=== PATIENT | male | born 1955 | race African-American/Black ===

== ENCOUNTER 2018-02-12 10:16 | Observation (INO) | payer OTHER ==
[2018-02-12 11:36] VITALS: BMI 28.4
[2018-02-12] MEDS ORDERED: GLUCAGON 1 MG/VIAL IM PRN (11:36)
[2018-02-12] MEDS ORDERED: D50W 25 GM/50 ML SYRINGE IV PRN (11:36)
[2018-02-12] MEDS: INSULIN -REGULAR HUMAN 50 UNIT/0.5 ML ML SQ SCH ×3 (11:57→20:40)
[2018-02-12 12:15] LABS: Urine Appearance CLEAR; Urine Blood NEGATIVE (NEG); Urine Color DK YELLOW; Urine Glucose 3+ (NEG); Urine Protein 1+ (NEG); Urine Specific Gravity >=1.030 (1.005-1.030)
[2018-02-12 12:23] LABS: Urine Bilirubin 1+ (NEG); Urine Microscopic Reflex ORDER UMIC
[2018-02-12] MEDS: NACHLORIDE 0.45% 1,000 ML IV SCH ×2 (12:23→17:40)
[2018-02-12 12:30] LABS: Urine Bacteria >50 /HPF (NONE SEEN); Urine Culture Reflex Order REFLEXED; Urine RBC NONE SEEN /HPF (NONE SEEN)
[2018-02-12 12:31] LABS: Urine Amorphous Sediment 2+ /HPF (NONE SEEN); Urine Mucus HEAVY /HPF (NONE SEEN)
[2018-02-12 12:45] LABS: Absolute Lymphocytes (CBC) 2.6 K/uL (0.7-4.9); Absolute Monocytes 1.3 K/uL (0.1-1.3); Basophils % 0.3 % (0-1.3); Eosinophils % 0.2 % (0-4.4); Hematocrit 37.7 % (39.6-49.0); Lymphocytes % 21.7 % (15.3-44.8); MCH 25.9 pg (27.0-35.0); MCV 81.7 fL (80-100); Monocytes % 10.6 % (3.3-12.3); RBC Red Blood Cell Count 4.62 M/uL (4.33-5.43)
[2018-02-12 13:00] LABS: Albumin 3.7 g/dL (3.2-5.5); Protein, Total 7.9 g/dL (6.0-8.3)
[2018-02-12] MEDS ORDERED: CEFTRIAXONE/SWI 2gm 2 GM/20 ML SYR IV SCH (18:00)
[2018-02-12] MEDS ORDERED: ONDANSETRON 4 MG/2 ML VIAL IV PRN (20:03)
[2018-02-12] MEDS: ACETAMINOPHEN 500 MG TAB PO PRN (23:58)
[2018-02-13 00:49] VITALS: O2SAT 97
[2018-02-13] MEDS: NACHLORIDE 0.45% 1,000 ML IV SCH ×3 (00:49→13:49)
[2018-02-13 05:24] LABS: Potassium 4.3 mEq/L (3.6-5.0)
[2018-02-13] MEDS: ACETAMINOPHEN 500 MG TAB PO PRN (08:04)
[2018-02-13] MEDS: INSULIN -REGULAR HUMAN 50 UNIT/0.5 ML ML SQ SCH ×3 (08:17→17:17)
[2018-02-13 18:31] VITALS: BP 123/68; TEMP 97.2
--- NOTE | 2018-02-13 19:31 | HP ---
Date of Admission: 02/12/2018 Chief Complaint: Vomiting, diarrhea, dehydration. History Of Present Illness: A 62-year-old male was brought to the office with history of continued d iarrhea, abdominal cramp, nausea, and vomiting. The patient was found to be clinically dehydrated wi th a low blood pressure. The patient is admitted for IV fluid administration. The patient denied any history of vomiting or blood in the stools. Past Medical History: Positive for hypertension, type 2 diabetes, hyperlipidemia, osteoarthritis. Family History: Diabetes and hypertension present. Personal History: Allergic to sulfa. Home Medicines: Please refer to the chart. Review of Systems: No chest pain, shortness of breath. Physical Examination: General: Revealed a 62-year-old obese male. HEENT: Negative. Neck: Supple, JVD negative. Chest: Clear. Heart: Regular. Abdomen: Diffuse mild tenderness. Bowel sounds present. Extremities: No edema. Laboratory Data: White count 67912, creatinine 2.18, BUN 36, GFR 37. Assessment: 1.Probable viral gastroenteritis. 2.Dehydration. 3.Renal dysfunction due to dehydration. 4.Type 2 diabetes. 5.Hypertension. 6.Hyperlipidemia. 7.Osteoarthritis. Plan: IV fluids. Repeat Chem profile. Hold blood pressure medications. Insulin sliding scale. FERMÍN/SEEMA Voice ID: [id number]
== END 2018-02-13 19:00 | disposition home or self-care (01) ==
LOC: 2ND 11:22
PROVIDERS: ADMIT Internal Medicine; ATTEND Internal Medicine
DX: E86.0 Dehydration (principal); N28.9 Disorder of kidney and ureter, unspecified; I10 Essential (primary) hypertension; E11.9 Type 2 diabetes mellitus without complications; E78.5 Hyperlipidemia, unspecified; Z88.2 Allergy status to sulfonamides; E66.9 Obesity, unspecified; Z68.28 Body mass index [BMI] 28.0-28.9, adult; M19.90 Unspecified osteoarthritis, unspecified site
CPT/HCPCS: 36415; 80048; 80053; 81003; 81015; 82962; 85025; 87086; 87088; 87493; G0378; J0696; J2405

== ENCOUNTER 2021-01-30 17:48 | Emergency (ER) | payer BC, OTHER ==
[2021-01-30] MEDS ORDERED: NA CHLORIDE 0.9% 1,000 ML ONE (22:08)
[2021-01-30 22:26] LABS: Absolute Lymphocytes (CBC) 2.6 K/uL (0.7-4.9); Basophils % 0.6 % (0-1.3); Hematocrit 35.4 % (39.6-49.0); Lymphocytes % 24.5 % (15.3-44.8); MPV 8.7 fL (7.6-11.3); RBC Red Blood Cell Count 4.25 M/uL (4.33-5.43)
[2021-01-30 22:27] LABS: Protime INR 1.1
[2021-01-30 22:40] LABS: ALT/SGPT 22 U/L (12-78); AST/SGOT 19 U/L (15-37); Albumin 3.5 g/dL (3.4-5.0); Alkaline Phosphatase 60 U/L (45-117); BUN Blood Urea Nitrogen 28 mg/dL (7-18); Bicarbonate 27 mmol/L (21-32); Bilirubin Direct 0.2 mg/dL (0-0.2); Bilirubin Total 0.5 mg/dL (0.2-1.0); Glucose Level 117 mg/dL (74-106); Lipase 135 U/L (73-393); Magnesium 1.8 mg/dL (1.8-2.4); NT PRO-BNP 333 pg/mL (<125); Potassium 4.2 mmol/L (3.5-5.1); Protein, Total 8.9 g/dL (6.4-8.2); Sodium Level 138 mmol/L (136-145); Troponin (Emerg Dept Use Only) < 0.02 ng/mL (0.0-0.045)
[2021-01-30 23:24] LABS: Urine Blood 3+ (Negative); Urine Glucose Negative (Negative); Urine Protein 3+ (Negative); Urine Specific Gravity >=1.030 (1.005-1.030)
--- NOTE | 2021-01-30 23:47 | EDPHYS ---
Physician Documentation [facility] Name: Mike Ray Age: 65 yrs Sex: Male : 1955 Arrival Date: 01/30/2021 Time: 17:48 Bed 24 Private MD: Sergio Rasmussen ED Physician Arnaldo Vail HPI: 01/30 21:44 This 65 yrs old Black Male presents to ER via Ambulatory with complaints of Blood chuy Pressure Problem, elevated heart rate. 21:44 The patient presents to the emergency department with nausea, vomiting, 1 times since chuy the onset of symptoms. Onset: The symptoms/episode began/occurred today. Possible causes: unknown. The symptoms are aggravated by nothing. The symptoms are alleviated by nothing. nausea, no pain, bp 94/64, bp normally 105. Associated signs and symptoms: Pertinent positives: nausea. Onset: The symptoms/episode began/occurred today. Severity of symptoms: At their worst the symptoms were mild in the emergency department the symptoms are unchanged. The patient has experienced similar episodes in the past, a few times. Historical: - Allergies: 18:10 Sulfa (Sulfonamide Antibiotics); ss - PMHx: 18:10 Diabetes - IDDM; Hypertension; ss 18:11 GERD; Enlarged prostate; ss - Immunization history:: Adult Immunizations up to date. - Social history:: Smoking status: Patient denies any tobacco usage or history of. - Family history:: not pertinent. ROS: 21:44 Constitutional: Negative for fever, chills, and weight loss, Eyes: Negative for injury, chuy pain, redness, and discharge, ENT: Negative for injury, pain, and discharge, Neck: Negative for injury, pain, and swelling, Cardiovascular: Negative for chest pain, palpitations, and edema, Respiratory: Negative for shortness of breath, cough, wheezing, and pleuritic chest pain, Abdomen/GI: Negative for abdominal pain, nausea, vomiting, diarrhea, and constipation, Back: Negative for injury and pain, : Negative for injury, bleeding, discharge, and swelling, Skin: Negative for injury, rash, and discoloration, Neuro: Negative for headache, weakness, numbness, tingling, and seizure, Psych: Negative for depression, anxiety, suicide ideation, homicidal ideation, and hallucinations, Allergy/Immunology: Negative for hives, rash, and allergies, Endocrine: Negative for neck swelling, polydipsia, polyuria, polyphagia, and marked weight changes, Hematologic/Lymphatic: Negative for swollen nodes, abnormal bleeding, and unusual bruising. 21:44 MS/extremity: Positive for swelling, of the right leg. Exam: 21:44 Constitutional: This is a well developed, well nourished patient who is awake, alert, chuy and in no acute distress. Head/Face: Normocephalic, atraumatic. Eyes: Pupils equal round and reactive to light, extra-ocular motions intact. Lids and lashes normal. Conjunctiva and sclera are non-icteric and not injected. Cornea within normal limits. Periorbital areas with no swelling, redness, or edema. ENT: Nares patent. No nasal discharge, no septal abnormalities noted. Tympanic membranes are normal and external auditory canals are clear. Oropharynx with no redness, swelling, or masses, exudates, or evidence of obstruction, uvula midline. Mucous membranes moist. Neck: Trachea midline, no thyromegaly or masses palpated, and no cervical lymphadenopathy. Supple, full range of motion without nuchal rigidity, or vertebral point tenderness. No Meningismus. Chest/axilla: Normal chest wall appearance and motion. Nontender with no deformity. No lesions are appreciated. Respiratory: Lungs have equal breath sounds bilaterally, clear to auscultation and percussion. No rales, rhonchi or wheezes noted. No increased work of breathing, no retractions or nasal flaring. Abdomen/GI: Soft, non-tender, with normal bowel sounds. No distension or tympany. No guarding or rebound. No evidence of tenderness throughout. Back: No spinal tenderness. No costovertebral tenderness. Full range of motion. Male : Normal genitalia with no discharge or lesions. Skin: Warm, dry with normal turgor. Normal color with no rashes, no lesions, and no evidence of cellulitis. Neuro: Awake and alert, GCS 15, oriented to person, place, time, and situation. Cranial nerves II-XII grossly intact. Motor strength 5/5 in all extremities. Sensory grossly intact. Cerebellar exam normal. Normal gait. Psych: Awake, alert, with orientation to person, place and time. Behavior, mood, and affect are within normal limits. 21:44 Cardiovascular: Rate: tachycardic, actual rate is 105 bpm, Rhythm: regular, Pulses: Pulses are 4+ in bilateral radial, brachial, femoral, popliteal, posterior tibial and and dorsalis pedis arteries.. Heart sounds: normal, Edema: is not appreciated, JVD: is not appreciated. 21:59 ECG was reviewed by the Attending Physician. [facility] Vital Signs: 18:07 BP 94 / 67; Pulse 105; Resp 16; Temp 97.0(TE); Pulse Ox 98% on R/A; Weight 163.29 kg; ss Height 6 ft. 5 in. (195.58 cm); Pain 0/10; 21:30 BP 115 / 62; Pulse 90; Resp 16; Pulse Ox 98% ; rr5 22:30 BP 114 / 70; Pulse 85; Resp 17; Pulse Ox 100% ; rr5 23:25 BP 112 / 77 Supine; Pulse 92; Resp 16; Pulse Ox 100% ; rr5 23:27 BP 106 / 81 Sitting; Pulse 93; Resp 18; Pulse Ox 99% ; rr5 23:29 BP 109 / 77 Standing; Pulse 95; Resp 16; Pulse Ox 99% ; rr5 01/31 00:22 BP 127 / 85; Pulse 90; Resp 17; Pulse Ox 98% ; rr5 01/30 18:07 Body Mass Index 42.69 (163.29 kg, 195.58 cm) ss MDM: 01/30 21:13 Patient medically screened. chuy 21:47 Differential diagnosis: Nonspecific abd pain, viral gastroenteritis, gastroenteritis. [facility] Data reviewed: vital signs, nurses notes, lab test result(s), EKG, radiologic studies, doppler, plain films. Data interpreted: monitoring analyst: rate is 105 beats/min, rhythm is regular, Pulse oximetry: on room air is 98 %. Test interpretation: by ED physician or midlevel provider: ECG, plain radiologic studies. Counseling: I had a detailed discussion with the patient and/or guardian regarding: the historical points, exam findings, and any diagnostic results supporting the discharge/admit diagnosis, lab results, radiology results, the need for outpatient follow up. 01/30 21:43 Order name: Basic Metabolic Panel [facility] 01/30 21:43 Order name: CBC with Diff [facility] 01/30 21:43 Order name: LFT's [facility] 01/30 21:43 Order name: Magnesium [facility] 01/30 21:43 Order name: NT PRO-BNP; Complete Time: :43 [facility] 01/30 21:43 Order name: PT-INR; Complete Time: 22:43 [facility] 01/30 21:43 Order name: Troponin (emerg Dept Use Only); Complete Time: 22:43 [facility] 01/30 21:43 Order name: Lipase; Complete Time: 22:43 [facility] 01/30 21:44 Order name: Basic Metabolic Panel; Complete Time: 22:43 EDMS 01/30 21:44 Order name: CBC with Automated Diff; Complete Time: 22:43 EDAK 01/30 21:44 Order name: Liver (Hepatic) Function; Complete Time: 22:43 EDAK 01/30 21:44 Order name: Magnesium; Complete Time: 22:43 EDAK 01/30 23:24 Order name: Urine Dipstick-Ancillary; Complete Time: 23:27 EDAK 01/30 23:24 Order name: Urine Microscopic Only rr5 01/30 21:43 Order name: XRAY Chest (1 view) [facility] 01/30 21:43 Order name: EKG; Complete Time: 21:44 [facility] 01/30 21:43 Order name: Cardiac monitoring; Complete Time: 22:00 [facility] 01/30 21:43 Order name: EKG - Nurse/Tech; Complete Time: 21:57 [facility] 01/30 21:43 Order name: IV Saline Lock; Complete Time: 23:28 [facility] 01/30 21:43 Order name: Labs collected and sent; Complete Time: 23:28 [facility] 01/30 21:43 Order name: O2 Per Protocol; Complete Time: 22:00 [facility] 01/30 21:43 Order name: O2 Sat Monitoring; Complete Time: 22:00 [facility] 01/30 21:43 Order name: US Extremity Venous W Compression Filippo [facility] 01/30 21:43 Order name: Urine Dipstick-Ancillary (obtain specimen); Complete Time: 23:24 [facility] 01/30 22:49 Order name: Orthostatic Blood Pressure; Complete Time: 23:24 [facility] 01/30 23:26 Order name: Urine Culture [facility] EC:59 Rate is 94 beats/min. Rhythm is regular. QRS Williams is Normal. NH interval is normal. QRS chuy interval is normal. QT interval is normal. No Q waves. T waves are Normal. No ST changes noted. Clinical impression: NSR w/ Non-specific ST/T Changes and No evidence of ischemia. Interpreted by me. Reviewed by me. Administered Medications: 22:00 Drug: NS 0.9% 1000 ml Route: IV; Rate: 1 bolus; Site: left antecubital; jb4 23:30 Follow up: Response: No adverse reaction; IV Status: Completed infusion; IV Intake: rr5 1000ml 23:39 Drug: Rocephin 1 grams - ((cefTRIAXone) 1 grams, NS 0.9% 50 ml) Route: IVPB; Infused rr5 Over: 30 mins; Site: left antecubital; 01/31 00:28 Follow up: Response: No adverse reaction; IV Status: Completed infusion; IV Intake: [id number] 01/30 23:39 Drug: LevOfloxacin 500 mg Route: PO; rr5 01/31 00:28 Follow up: Response: No adverse reaction rr5 Disposition: 01/30/21 23:45 Discharged to Home. Impression: Type 1 diabetes mellitus, Obesity, unspecified, Chronic kidney disease (CKD), Urinary tract infection, site not specified, Nausea and vomiting. - Condition is Stable. - Discharge Instructions: Type 1 Diabetes Mellitus, Diagnosis, Adult, Nausea and Vomiting, Adult, Obesity, Adult, Urinary Tract Infection, Adult, Nausea and Vomiting, Adult, Ognf-jb-Zygs, Urinary Tract Infection, Adult, Ecrl-qd-Rjli, Chronic Kidney Disease, Adult, Krhg-ec-Djji, Chronic Kidney Disease, Adult, Obesity, Adult, Xjnh-rw-Ekeq, Type 1 Diabetes Mellitus, Self Care, Adult, Ypoq-hy-Bift. - Prescriptions for Zofran 4 mg Oral Tablet - take 1 tablet by ORAL route every 12 hours As needed; 20 tablet. Levaquin 250 mg Oral Tablet - take 1 tablet by ORAL route once daily for 8 days; 4 tablet. - Medication Reconciliation Form, Thank You Letter, Antibiotic Education, Prescription Opioid Use, Work release form form. - Follow up: Sergio Rasmussen; When: 1 - 2 days; Reason: Recheck today's complaints, Re-evaluation by your physician. Follow up: Rosanna Preston MD; When: 2 - 3 days; Reason: Recheck today's complaints, Re-evaluation by your physician. - Problem is new. - Symptoms have improved. Signatures: Dispatcher [employer] EDAK Arnaldo Vail MD MD cha Smirch, Shelby, RN RN ss Patel Guerra RN RN jb4 Arvin Abreu RN RN rr5 Corrections: (The following items were deleted from the chart) 01/30 23:50 23:45 01/30/2021 23:45 Discharged to Home. Impression: Type 1 diabetes mellitus; chuy Obesity, unspecified; Chronic kidney disease (CKD); Urinary tract infection, site not specified. Condition is Stable. Discharge Instructions: Type 1 Diabetes Mellitus, Diagnosis, Adult, Obesity, Adult, Chronic Kidney Disease, Adult, Xmld-ae-Qqar, Chronic Kidney Disease, Adult, Obesity, Adult, Mugf-sq-Hhwg, Type 1 Diabetes Mellitus, Self Care, Adult, Egvd-bk-Rucs. Prescriptions for Zofran 4 mg Oral Tablet - take 1 tablet by ORAL route every 12 hours As needed; 20 tablet. and Forms are Medication Reconciliation Form, Thank You Letter, Antibiotic Education, Prescription Opioid Use. Follow up: Sergio Rasmussen; When: 1 - 2 days; Reason: Recheck today's complaints, Re-evaluation by your physician. Follow up: Rosanna Preston; When: 2 - 3 days; Reason: Recheck today's complaints, Re-evaluation by your physician. Problem is new. Symptoms have improved. chuy 01/31 00:29 01/30 23:50 01/30/2021 23:45 Discharged to Home. Impression: Type 1 diabetes mellitus; rr5 Obesity, unspecified; Chronic kidney disease (CKD); Urinary tract infection, site not specified; Nausea and vomiting. Condition is Stable. Discharge Instructions: Type 1 Diabetes Mellitus, Diagnosis, Adult, Obesity, Adult, Chronic Kidney Disease, Adult, Tlqj-sc-Pzft, Chronic Kidney Disease, Adult, Obesity, Adult, Drlu-zn-Aaxd, Type 1 Diabetes Mellitus, Self Care, Adult, Msaw-jx-Wsgf, Urinary Tract Infection, Adult, Urinary Tract Infection, Adult, Okpf-iy-Saal. Prescriptions for Zofran 4 mg Oral Tablet - take 1 tablet by ORAL route every 12 hours As needed; 20 tablet, Levaquin 250 mg Oral Tablet - take 1 tablet by ORAL route once daily for 8 days; 4 tablet. and Forms are Medication Reconciliation Form, Thank You Letter, Antibiotic Education, Prescription Opioid Use. Follow up: Sergio Rasmussen; When: 1 - 2 days; Reason: Recheck today's complaints, Re-evaluation by your physician. Follow up: Rosanna Preston; When: 2 - 3 days; Reason: Recheck today's complaints, Re-evaluation by your physician. Problem is new. Symptoms have improved. chuy
--- NOTE | 2021-01-30 23:47 | ER ---
Nurse's Notes [facility] Name: Mike Ray Age: 65 yrs Sex: Male : 1955 Arrival Date: 01/30/2021 Time: 17:48 Bed 24 Private MD: Sergio Rasmussen Diagnosis: Type 1 diabetes mellitus;Obesity, unspecified;Chronic kidney disease (CKD);Urinary tract infection, site not specified;Nausea and vomiting Presentation: 01/30 18:07 Chief complaint: Patient states: Diarrhea that began yesterday. nausea with one episode ss of vomiting today. Pt reports he was at work and was feeling nauseous so he called the nurse and his blood pressure was 98/64. Called Dr. Rasmussen who told him to come to ED for further evaluation. Coronavirus screen: Client denies travel out of the [place] in the last 14 days. Ebola Screen: Patient denies exposure to infectious person. Patient denies travel to an Ebola-affected area in the 21 days before illness onset. Initial Sepsis Screen: Does the patient meet any 2 criteria? No. Patient's initial sepsis screen is negative. Does the patient have a suspected source of infection? No. Patient's initial sepsis screen is negative. Risk Assessment: Do you want to hurt yourself or someone else? Patient reports no desire to harm self or others. Onset of symptoms was January 29, 2021. 18:07 Method Of Arrival: Ambulatory ss 18:07 Acuity: MOOSE 3 ss Historical: - Allergies: 18:10 Sulfa (Sulfonamide Antibiotics); ss - PMHx: 18:10 Diabetes - IDDM; Hypertension; ss 18:11 GERD; Enlarged prostate; ss - Immunization history:: Adult Immunizations up to date. - Social history:: Smoking status: Patient denies any tobacco usage or history of. - Family history:: not pertinent. Screenin:35 Abuse screen: Denies threats or abuse. Denies injuries from another. Nutritional rr5 screening: No deficits noted. Tuberculosis screening: No symptoms or risk factors identified. Fall Risk IV access (20 points). Total Torres Fall Scale indicates No Risk (0-24 pts). Assessment: 21:35 General: Appears in no apparent distress. comfortable, Behavior is calm, cooperative, rr5 appropriate for age. 21:35 Pain: Denies pain. Neuro: Level of Consciousness is awake, alert, obeys commands, rr5 Oriented to person, place, time, situation. Cardiovascular: Reports BP problem, elevated heart rate Capillary refill < 3 seconds Patient's skin is warm and dry. Respiratory: Airway is patent Respiratory effort is even, unlabored, Respiratory pattern is regular, symmetrical. GI: Reports diarrhea. : No signs and/or symptoms were reported regarding the genitourinary system. EENT: No signs and/or symptoms were reported regarding the EENT system. Derm: Skin is intact, is healthy with good turgor, Skin temperature is warm. Musculoskeletal: Circulation, motion, and sensation intact. Capillary refill < 3 seconds. 22:30 Reassessment: Patient appears in no apparent distress at this time. Patient is alert, rr5 oriented x 3, equal unlabored respirations, skin warm/dry/pink. awaiting for results. 23:30 Reassessment: Patient appears in no apparent distress at this time. Patient is alert, rr5 oriented x 3, equal unlabored respirations, skin warm/dry/pink. no complaints made. 01/31 00:22 Reassessment: Patient appears in no apparent distress at this time. Patient is alert, rr5 oriented x 3, equal unlabored respirations, skin warm/dry/pink. discharge instruction given and explained without complaints made. Vital Signs: 01/30 18:07 BP 94 / 67; Pulse 105; Resp 16; Temp 97.0(TE); Pulse Ox 98% on R/A; Weight 163.29 kg; Height 6 ft. 5 in. (195.58 cm); Pain 0/10; 21:30 BP 115 / 62; Pulse 90; Resp 16; Pulse Ox 98% ; rr5 22:30 BP 114 / 70; Pulse 85; Resp 17; Pulse Ox 100% ; rr5 23:25 BP 112 / 77 Supine; Pulse 92; Resp 16; Pulse Ox 100% ; rr5 23:27 BP 106 / 81 Sitting; Pulse 93; Resp 18; Pulse Ox 99% ; rr5 23:29 BP 109 / 77 Standing; Pulse 95; Resp 16; Pulse Ox 99% ; rr5 01/31 00:22 BP 127 / 85; Pulse 90; Resp 17; Pulse Ox 98% ; rr5 01/30 18:07 Body Mass Index 42.69 (163.29 kg, 195.58 cm) ED Course: 01/30 17:48 Patient arrived in ED. as 17:49 Sergio Rasmussen MD is Private Physician. as 18:09 Triage completed. ss 18:10 Arm band placed on right wrist. ss 21:13 Arnaldo Vail MD is Attending Physician. chuy 21:35 Patient has correct armband on for positive identification. Bed in low position. Call rr5 light in reach. Side rails up X2. fabricating machine operator on. Pulse ox on. NIBP on. 21:46 Arvin Abreu, RN is Primary Nurse. rr5 21:55 Initial lab(s) drawn, by ia, sent to lab. Inserted saline lock: 18 gauge in left jb4 antecubital area, using aseptic technique. Blood collected. 22:02 XRAY Chest (1 view) In Process Unspecified. EDMS 22:22 US Extremity Venous W Compression Filippo In Process Unspecified. EDMS 23:45 Sergio Rasmussen MD is Referral Physician. [facility] 23:45 Rosanna Preston MD is Referral Physician. [facility] 01/31 00:27 No provider procedures requiring assistance completed. IV discontinued, intact, rr5 bleeding controlled, No redness/swelling at site. Pressure dressing applied. Administered Medications: 01/30 22:00 Drug: NS 0.9% 1000 ml Route: IV; Rate: 1 bolus; Site: left antecubital; jb4 23:30 Follow up: Response: No adverse reaction; IV Status: Completed infusion; IV Intake: rr5 1000ml 23:39 Drug: Rocephin 1 grams - ((cefTRIAXone) 1 grams, NS 0.9% 50 ml) Route: IVPB; Infused rr5 Over: 30 mins; Site: left antecubital; 01/31 00:28 Follow up: Response: No adverse reaction; IV Status: Completed infusion; IV Intake: [id number] 01/30 23:39 Drug: LevOfloxacin 500 mg Route: PO; rr5 01/31 00:28 Follow up: Response: No adverse reaction rr5 Intake: 01/30 23:30 IV: 1000ml; Total: 1000ml. rr5 01/31 00:28 IV: 10ml; Total: 1010ml. rr5 Outcome: 01/30 23:45 Discharge ordered by . [facility] 01/31 00:27 Discharged to home ambulatory. rr5 Condition: stable Discharge instructions given to patient, Instructed on discharge instructions, follow up and referral plans. medication usage, Demonstrated understanding of instructions, follow-up care, medications, Prescriptions given X 1. 00:29 Patient left the ED. rr5 Addendum: 02/03/2021 07:19 Addendum: Culture Results: Positive urine culture. No further action required. Bacteria e b sensitive to prescribed antibiotic. Signatures: Dispatcher [employer] EDWY Arnaldo Vail MD MD cha Martinez, Amelia as Smirch, Shelby, RN RN Patel Guerra RN RN jb4 Ila Pandya Raymond, RN RN rr5
[2021-01-30] MEDS ORDERED: NA CHLORIDE 0.9% 50 ML ONE (23:51)
[2021-01-30] MEDS ORDERED: levoFLOXacin 500 MG TAB ONE (23:51)
[2021-01-30] MEDS ORDERED: CEFTRIAXONE/SWI 1gm 1 GM/10 ML SYR ONE (23:51)
[2021-01-31 00:27] LABS: Urine Bacteria LOADED /HPF (NONE SEEN)
[2021-01-31 00:28] LABS: Urine RBC >50 /HPF (NONE SEEN); Urine Urothelial Cells <5 /HPF (NONE SEEN)
[2021-01-31 00:52] VITALS: TEMP 97
[2021-01-31 01:01] VITALS: BP 127/85; O2SAT 98
--- NOTE | 2021-01-31 08:18 | RAD REPORT ---
EXAM DESCRIPTION: US - Extrem Venous W Compress Filippo - 01/30/2021 10:22 pm CLINICAL HISTORY: SWELLING Bilateral leg edema and swelling. COMPARISON: No comparisons TECHNIQUE: Real-time sonographic interrogation of the left and right lower extremity deep venous sys tems was performed. FINDINGS: Normal compressibility, flow augmentation, phasic flow and spontaneous flow is identified in both the left and right lower extremity deep venous systems. IMPRESSION: No sonographic evidence of left or right lower extremity deep venous thrombosis.
--- NOTE | 2021-01-31 08:34 | RAD REPORT ---
EXAM DESCRIPTION: RAD - Chest Single View - 01/30/2021 10:02 pm CLINICAL HISTORY: COUGH Chest pain. COMPARISON: CHEST PA AND LAT 2 VIEW dated 01/06/2012 FINDINGS: Portable technique limits examination quality. The lungs are grossly clear. The heart is upper limit of normal in size. No displaced fractures. IMPRESSION: No acute intrathoracic process suspected.
--- NOTE | 2021-01-31 16:10 | EKG ---
Test Date: 2021-01-30 Test Time: 21:54:04 Dairy Nutritionist: RR MEASUREMENT RESULTS: Intervals: Rate: 94 MI: 144 QRSD: 76 QT: 348 QTc: 435 Piffard: P: 55 MI: 144 QRS: -2 T: 44 INTERPRETIVE STATEMENTS: Normal sinus rhythm Low voltage QRS Borderline ECG Compared to ECG 01/06/2012 11:08:02 Low QRS voltage now present Electronically Signed On 01-31-21 16:07:01 CDT by Mann Cardoso
== END 2021-01-31 00:29 | disposition home or self-care (01) ==
LOC: ER 17:48
DX: N39.0 Urinary tract infection, site not specified (principal); E11.22 Type 2 diabetes mellitus with diabetic chronic kidney disease; I12.9 Hypertensive chronic kidney disease with stage 1 through stage 4 chronic kidney disease, or unspecified chronic kidney disease; N18.9 Chronic kidney disease, unspecified; E66.9 Obesity, unspecified
CPT/HCPCS: 93005; 87088; 85025; 87086; 80048; 36415; 83735; 85610; 80076; 84484; 83690; 83880; 71045; 93970; J0696; J7030; 81003; 81015; 87077; 87186; 96361; 96365; 99284

== ENCOUNTER 2021-02-13 12:01 | Observation (INO) | payer BC ==
[2021-02-13] MEDS ORDERED: ONDANSETRON 4 MG/2 ML VIAL ONE (13:15)
[2021-02-13] MEDS ORDERED: NA CHLORIDE 0.9% 1,000 ML ONE (13:16)
[2021-02-13] MEDS ORDERED: MECLIZINE HCL 12.5 MG TAB ONE (13:22)
[2021-02-13 13:25] LABS: Absolute Lymphocytes (CBC) 2.4 K/uL (0.7-4.9); Basophils % 0.5 % (0-1.3); Hematocrit 37.3 % (39.6-49.0); Lymphocytes % 25.1 % (15.3-44.8); MPV 8.8 fL (7.6-11.3); RBC Red Blood Cell Count 4.49 M/uL (4.33-5.43)
--- NOTE | 2021-02-13 13:27 | RAD REPORT ---
EXAM DESCRIPTION: CT - Head Brain Wo Cont - 02/13/2021 1:15 pm CLINICAL HISTORY: Dizziness COMPARISON: 2011 TECHNIQUE: Computed axial tomography of the head was obtained. IV contrast was not requested. All CT scans are performed using dose optimization technique as appropriate and may include automated exposure control or mA/KV adjustment according to patient size. FINDINGS: An intracranial bleed is not seen . The ventricles are normal in caliber. No extra-axial fluid collection is noted. Gliosis right frontal lobe unchanged. Left parietal scalp lesion unchanged. 6 millimeter low-density area adjacent to the right lateral ventricle may be an old small infarction Fluid within the sinuses/ mastoids is not seen. IMPRESSION: No acute intracranial abnormality is seen. If patient's symptoms persist MRI of the bra in would be recommended.
[2021-02-13 13:31] LABS: Protime INR 1.06
[2021-02-13 13:44] LABS: ALT/SGPT 21 U/L (12-78); AST/SGOT 17 U/L (15-37); Alkaline Phosphatase 53 U/L (45-117); BUN Blood Urea Nitrogen 35 mg/dL (7-18); Bicarbonate 27 mmol/L (21-32); Bilirubin Direct 0.2 mg/dL (0-0.2); Bilirubin Total 0.5 mg/dL (0.2-1.0); Glucose Level 147 mg/dL (74-106); Magnesium 1.5 mg/dL (1.8-2.4); NT PRO-BNP 305 pg/mL (<125); Potassium 4.5 mmol/L (3.5-5.1); Sodium Level 140 mmol/L (136-145); Troponin (Emerg Dept Use Only) < 0.02 ng/mL (0.0-0.045)
--- NOTE | 2021-02-13 14:53 | RAD REPORT ---
EXAM DESCRIPTION: MRI - Brain Wo Cont - 02/13/2021 2:41 pm CLINICAL HISTORY: Dizziness COMPARISON: Head CT February 13, 2021 TECHNIQUE: Axial, sagittal, and coronal magnetic images of the brain were obtained. Contrast was not requested FINDINGS: Abnormal signal right frontal lobe probably gliosis secondary to old infarct. Small area o f abnormal signal left cerebellum also probably secondary to an infarct. Diffusion-weighted/ADC mapping does not reveal evidence of acute infarction. The ventricles are normal caliber. An extra-axial fluid collection is not present Fluid within the sinuses/mastoids is not noted IMPRESSION: No acute abnormality is displayed
--- NOTE | 2021-02-13 15:07 | RAD REPORT ---
EXAM DESCRIPTION: Shameka Single View02/13/2021 2:17 pm CLINICAL HISTORY: Shortness of breath COMPARISON: January 2021 FINDINGS: The lungs appear clear of acute infiltrate. The heart is normal size IMPRESSION: No acute abnormalities displayed
[2021-02-13] MEDS ORDERED: ACETAMINOPHEN 500 MG TAB PO PRN (17:06)
[2021-02-13] MEDS ORDERED: ONDANSETRON 4 MG/2 ML VIAL IV PRN (17:06)
[2021-02-13] MEDS ORDERED: HYDROCODONE/APAP 5/325 MG TAB PO PRN (17:11)
--- NOTE | 2021-02-13 17:16 | P.HP ---
Certification for Inpatient Patient admitted to: Inpatient With expected LOS: >2 Midnights Patient will require the following post-hospital care: None Practitioner: I am a practitioner with admitting privileges, knowledge of patient current condition, hospital course, and medical plan of care. Services: Services provided to patient in accordance with Admission requirements found in Title 42 Section 412.3 of the Code of Federal Regulations Patient History Date of Service: 02/13/21 Reason for admission: Near Syncope History of Present Illness: Patient is 65-year-old male with a past medical history significant for hypertension, GERD, DM 2, BPH, HLD who presents with complaint of dizziness. Patient reported that he was at work when he started feeling dizzy and lightheadedness. He also had a near syncopal episode and decided to go see the facility nurse. Patient reported associated signs and symptoms of nausea, vomiting and weakness. Patient denies any other signs or symptoms. Symptoms are aggravated or relieved by nothing. Patient decided to present to the hospital for medical evaluation. Of note, patient reported that his blood pressure was low at work when assessed by the facility nurse. Patient cannot remember the exact figures Allergies Sulfa (Sulfonamide Antibiotics) [Sulfa(Sulfonamide Antibiotics)] Allergy (Verified 01/06/12 10:29) Hives/Rash Home medications list reviewed: Yes Home Medications: Insulin Glargine,Hum.rec.anlog [Basaglar Kwikpen U-100] 40 unit SQ BID 02/12/18 Omeprazole 20 mg PO DAILY 02/12/18 - Past Medical/Surgical History Diabetic: Yes -: iddm -: bilateral cateract surgery -: appendectomy - Social History Smoking Status: Unknown if ever smoked Alcohol use: No CD- Drugs: No Caffeine use: Yes Review of Systems General: Weakness Eyes: Unremarkable ENT: Unremarkable Respiratory: Unremarkable Cardiovascular: Unremarkable Gastrointestinal: Nausea, Vomiting, Unremarkable Genitourinary: Unremarkable Musculoskeletal: Unremarkable Integumentary: Unremarkable Neurological: Weakness, Other (Dizziness ) Lymphatics: Unremarkable Physical Examination - Physical Exam General: Alert, In no apparent distress, Oriented x3 HEENT: Atraumatic, PERRLA, Mucous membr. moist/pink, EOMI, Sclerae nonicteric Neck: Supple, 2+ carotid pulse no bruit, No LAD, Without JVD or thyroid abnormality Respiratory: Clear to auscultation bilaterally, Normal air movement Cardiovascular: No edema, Regular rate/rhythm, Normal S1 S2 Capillary refill: <2 Seconds Gastrointestinal: Normal bowel sounds, No tenderness Musculoskeletal: No clubbing, No tenderness Integumentary: No rashes, No breakdown Neurological: Normal gait, Normal speech, Normal strength at 5/5 x4 extr, Normal tone, Normal affect Lymphatics: No axilla or inguinal lymphadenopathy External genitalia: No edema, Deferred Rectal: Deferred - Studies Laboratory Data (last 24 hrs) 02/13/21 13:12: PT 12.2, INR 1.06 02/13/21 13:12: WBC 9.40, Hgb 11.8 L, Hct 37.3 L, Plt Count 404 02/13/21 13:12: Sodium 140, Potassium 4.5, BUN 35 H, Creatinine 3.48 H, Glucose 147 H, Magnesium 1.5 L, Total Bilirubin 0.5, AST 17, ALT 21, Alkaline Phosphatase 53 Assessment and Plan - Plan --Near syncope. MRI brain unremarkable for any intracranial abnormality. Echocardiogram to assess LV\valvular functions and wall motion. Carotid Doppler to assess for any carotid artery stenosis. Telemetry to monitor for any significant arrhythmia. We will get some orthostatic vital signs. Four Slide Operator consulted. Will await further recommendations. --DM2. BS monitoring with sliding scale insulin. --Nausea and vomiting. Antiemetics on board. --HLD. Continue statin. --BPH. Continue Flomax. --GERD. Continue home medications. -Hypertension. Pts BP initially hypotensive but now Stable. Continue home medications. --Morbid obesity. Likely secondary to excess calories intake. Patient counseled on diet and exercise therapy. --LESLEY. Baseline functions unknown. Continue IV hydration. Will reassess renal functions in am. --Mild Rhabdomyolysis . Continue IV hydration. Will re-assess cpk in am --DVT prophylaxis with Lovenox subQ. Discharge Plan: Home Plan to discharge in: 48 Hours - Advance Directives Does patient have a Living Will: No Does patient have a Durable POA for Healthcare: No - Code Status/Comfort Care Code Status Assessed: Yes Code Status: Full Code Critical Care: No
[2021-02-13 19:50] LABS: Thyroid Stimulating Hormone 0.734 uIU/mL (0.360-3.740)
--- NOTE | 2021-02-13 20:27 | EDPHYS ---
Physician Documentation [facility] Name: Mike Ray Age: 65 yrs Sex: Male : 1955 Arrival Date: 02/13/2021 Time: 12:04 Bed 14 Private MD: Segrio Rasmussen ED Physician Arnaldo Vail HPI: 02/13 12:56 This 65 yrs old Black Male presents to ER via Ambulatory with complaints of Dizziness, jmm Nausea/Vomiting. 12:56 The patient presents with dizziness, feeling faint. Onset: The symptoms/episode jmm began/occurred acutely, just prior to arrival, today. Modifying factors: The symptoms are alleviated by nothing, the symptoms are aggravated by changing position. Associated signs and symptoms: Pertinent positives: vomiting, Pertinent negatives: abdominal pain, chest pain. This is a 65 year old male with a history of htn, GERD, DM that presents to the ED with complaints of vomiting, weakness beginning acutely. BP was low at work. . Historical: - Allergies: 12:36 Sulfa (Sulfonamide Antibiotics); tw2 12:37 Flagyl; tw2 12:37 Neosporin (uuv-auu-mlmtb); tw2 12:37 Amaryl; tw2 - Home Meds: 12:36 metformin 1,000 mg Oral tr24 2 tabs once daily [Active]; ozempic once a week 0.5 mg INJ tw2 [Active]; tamsulosin 0.4 mg oral cp24 1 cap once daily [Active]; basaglar 100 units/ML KWIKPEN once a day [Active]; pravastatin 40 mg oral tab 1 tab once daily [Active]; omeprazole 20 mg Oral cpDR 1 cap once daily [Active]; olmesartan-hydrochlorothiazide oral 40 mg/ 12.5 mg oral [Active]; - PMHx: 12:36 Hypertension; enlarged prostate; GERD; Diabetes - IDDM; tw2 - PSHx: 12:36 boil (staph infection); tw2 12:37 Appendectomy; tw2 - Immunization history:: Adult Immunizations. - Social history:: Smoking status: . ROS: 12:56 Constitutional: Negative for fever, chills, and weight loss, Cardiovascular: Negative jmm for chest pain, palpitations, and edema, Respiratory: Negative for shortness of breath, cough, wheezing, and pleuritic chest pain. 12:56 Abdomen/GI: Positive for vomiting. 12:56 Neuro: Positive for dizziness. 12:56 All other systems are negative. Exam: 12:56 Constitutional: This is a well developed, well nourished patient who is awake, alert, jmm and in no acute distress. Head/Face: atraumatic. Eyes: EOMI, no conjunctival erythema appreciated ENT: Moist Mucus Membranes Neck: Trachea midline, Supple Chest/axilla: Normal chest wall appearance and motion. Cardiovascular: Regular rate and rhythm. No edema appreciated Respiratory: Normal respirations, no respiratory distress appreciated Abdomen/GI: Non distended, soft Back: Normal ROM Skin: General appearance color normal MS/ Extremity: Moves all extremities, no obvious deformities appreciated, no edema noted to the lower extremities Neuro: Awake and alert, normal gait Psych: Behavior is normal, Mood is normal, Patient is cooperative and pleasant Vital Signs: 12:28 BP 73 / 60; Pulse 118; Resp 17; Temp 98.6(O); Pulse Ox 100% on R/A; Weight 161.03 kg tw2 (R); Height 6 ft. 5 in. (195.58 cm) (R); Pain 0/10; 13:26 BP 92 / 69; Pulse 112; Resp 20; Temp 98.5(TE); Pulse Ox 100% on R/A; Weight 161.03 kg; ld1 Height 6 ft. 5 in. (195.58 cm); Pain 0/10; 15:45 BP 123 / 72; Pulse 94; Resp 18; Pulse Ox 100% on R/A; Pain 0/10; jl7 17:02 BP 121 / 78; Pulse 82; Resp 18; Pulse Ox 97% on R/A; Pain 0/10; ld1 20:30 BP 128 / 81; Pulse 79; Resp 16 S; Pulse Ox 100% on R/A; ca1 13:26 Body Mass Index 42.10 (161.03 kg, 195.58 cm) ld1 MDM: 13:03 Patient medically screened. [facility] 16:22 Data reviewed: vital signs, nurses notes. Counseling: I had a detailed discussion with ulisses the patient and/or guardian regarding: the historical points, exam findings, and any diagnostic results supporting the discharge/admit diagnosis, lab results, radiology results, to return to the emergency department if symptoms worsen or persist or if there are any questions or concerns that arise at home. ED course: Patient was discussed with Gonsalo whom accepted the patient to Dr. Jones's service.. 02/13 12:56 Order name: Basic Metabolic Panel [facility] 02/13 12:56 Order name: CBC with Diff [facility] 02/13 12:56 Order name: LFT's [facility] 02/13 12:56 Order name: Magnesium [facility] 02/13 12:56 Order name: NT PRO-BNP; Complete Time: 13:55 [facility] 02/13 12:56 Order name: PT-INR; Complete Time: 13:55 [facility] 02/13 12:56 Order name: Troponin (emerg Dept Use Only); Complete Time: 13:55 [facility] 02/13 12:56 Order name: Procalcitonin; Complete Time: 13:57 [facility] 02/13 12:56 Order name: Lactate; Complete Time: 13:55 [facility] 02/13 12:56 Order name: Blood Culture Adult (2) [facility] 02/13 12:56 Order name: Basic Metabolic Panel; Complete Time: 13:55 [facility] 02/13 12:56 Order name: CBC with Automated Diff; Complete Time: 13:27 [facility] 02/13 12:56 Order name: Liver (Hepatic) Function; Complete Time: 13:55 [facility] 02/13 12:56 Order name: Magnesium; Complete Time: 13:55 [facility] 02/13 12:56 Order name: XRAY Chest (1 view); Complete Time: 15:09 [facility] 02/13 12:58 Order name: CT Head Brain wo Cont; Complete Time: 13:55 [facility] 02/13 13:58 Order name: MRI - Brain Wo Cont; Complete Time: 14:57 [facility] 02/13 16:49 Order name: Lactate Sepsis 2 HR Follow-up; Complete Time: 16:51 [facility] 02/13 17:06 Order name: Echo without Doppler (2D) [facility] 02/13 17:06 Order name: Carotid Artery Bilateral [facility] 02/13 17:16 Order name: COVID-19 : Document "Date of Symptom Onset" if Symptomatic. ld1 02/13 17:53 Order name: CORONAVIRUS [facility] 02/13 18:41 Order name: SARS-COV-2 RT PCR; Complete Time: 18:41 [facility] 02/13 19:40 Order name: Hemoglobin A1c; Complete Time: 19:41 [facility] 02/13 19:50 Order name: Creatine Phosphokinase; Complete Time: 19:54 [facility] 02/13 19:50 Order name: Lipid Profile; Complete Time: 19:54 [facility] 02/13 19:50 Order name: T4 Free; Complete Time: 19:54 [facility] 02/13 19:50 Order name: Thyroid Stimulating Hormone; Complete Time: 19:54 [facility] 02/13 19:58 Order name: Troponin I; Complete Time: 19:59 [facility] 02/13 12:56 Order name: EKG; Complete Time: 12:57 [facility] 02/13 12:56 Order name: Cardiac monitoring; Complete Time: 13:36 [facility] 02/13 12:56 Order name: EKG - Nurse/Tech; Complete Time: 13:51 [facility] 02/13 12:56 Order name: IV Saline Lock; Complete Time: 13:36 [facility] 02/13 12:56 Order name: Labs collected and sent; Complete Time: 13:36 [facility] 02/13 12:56 Order name: O2 Per Protocol; Complete Time: 13:35 [facility] 02/13 12:56 Order name: O2 Sat Monitoring; Complete Time: 13:36 jm Administered Medications: 13:00 Drug: NS 0.9% 1000 ml Route: IV; Rate: 1 bolus; Site: left antecubital; ld1 13:35 Follow up: Response: No adverse reaction ld1 13:00 Drug: Zofran (Ondansetron) 4 mg Route: IVP; Site: left antecubital; ld1 13:35 Follow up: Response: No adverse reaction; Nausea is decreased ld1 13:05 Drug: Meclizine 50 mg Route: PO; ld1 13:34 Follow up: Response: No adverse reaction; Nausea is decreased; Vomiting decreased ld1 Disposition: 02/14 11:23 Co-signature as Attending Physician, Arnaldo Vail MD I agree with the assessment and chuy plan of care. Disposition: 02/13/21 16:24 Hospitalization ordered by Gamaliel Jones for Inpatient Admission. Preliminary diagnosis are Acute Kidney Injury, Vomiting, Hypotension. - Bed requested for Telemetry/MedSurg (Inpatient). - Status is Inpatient Admission. jb4 - Condition is Stable. - Problem is new. - Symptoms are unchanged. Signatures: Dispatcher [employer] EDArnaldo Acuna MD MD cha Mickail, Joel, PA PA jmm Garcia, Cindy, RN RN Maral Wheatley RN RN tw2 Patel Guerra, EMILY RN jb4 Christine Hayward RN RN ld1 Corrections: (The following items were deleted from the chart) 02/13 19:42 16:24 Hospitalization Ordered by Gamaliel Jones for Inpatient Admission. Preliminary cg diagnosis is Acute Kidney Injury; Vomiting; Hypotension. Bed requested for Telemetry/MedSurg (Inpatient). Status is Inpatient Admission. Condition is Stable. Problem is new. Symptoms are unchanged. [facility] 20:27 19:42 02/13/2021 16:24 Hospitalization Ordered by Gamaliel Jones for Inpatient jb4 Admission. Preliminary diagnosis is Acute Kidney Injury; Vomiting; Hypotension. Bed requested for Telemetry/MedSurg (Inpatient). Status is Inpatient Admission. Condition is Stable. Problem is new. Symptoms are unchanged. cg
--- NOTE | 2021-02-13 20:27 | ER ---
Nurse's Notes [facility] Name: Mike Ray Age: 65 yrs Sex: Male : 1955 Arrival Date: 02/13/2021 Time: 12:04 Bed 14 Private MD: Sergio Rasmussen Diagnosis: Acute Kidney Injury;Vomiting;Hypotension Presentation: 02/13 12:28 Chief complaint: Patient states: i was at work. i went to get some material and when i tw2 stood up i just got light headed and clammy. i just ate an apple this morning. i threw up once. i went to the nurse and took my blood pressure and sent this note with me. Note states ": Mr. Ray voices having dizziness when standing up. His gait is steady and he is A\\T\\O x3. His skin is cool and slightly clammy initially. BGL was 140 this am. At 9:10 it was 181 mg/dL. BP was 100/60 temp 98.3. Coronavirus screen: fatigue, nausea, vomiting. Ebola Screen: Patient denies travel to an Ebola-affected area in the 21 days before illness onset. Initial Sepsis Screen: Does the patient meet any 2 criteria? HR > 90 bpm. No. Patient's initial sepsis screen is negative. Does the patient have a suspected source of infection? No. Patient's initial sepsis screen is negative. Risk Assessment: Do you want to hurt yourself or someone else? Patient reports no desire to harm self or others. Onset of symptoms was February 13, 2021. 12:28 Method Of Arrival: Ambulatory tw2 12:28 Acuity: MOOSE 2 tw2 Triage Assessment: 12:36 General: Appears ill, well groomed, well developed, Behavior is calm, cooperative, tw2 appropriate for age, quiet. Pain: Denies pain. Neuro: Reports dizziness. GI: Reports nausea. Historical: - Allergies: 12:36 Sulfa (Sulfonamide Antibiotics); tw2 12:37 Flagyl; tw2 12:37 Neosporin (cyo-lcz-rwynu); tw2 12:37 Amaryl; tw2 - Home Meds: 12:36 metformin 1,000 mg Oral tr24 2 tabs once daily [Active]; ozempic once a week 0.5 mg INJ tw2 [Active]; tamsulosin 0.4 mg oral cp24 1 cap once daily [Active]; basaglar 100 units/ML KWIKPEN once a day [Active]; pravastatin 40 mg oral tab 1 tab once daily [Active]; omeprazole 20 mg Oral cpDR 1 cap once daily [Active]; olmesartan-hydrochlorothiazide oral 40 mg/ 12.5 mg oral [Active]; - PMHx: 12:36 Hypertension; enlarged prostate; GERD; Diabetes - IDDM; tw2 - PSHx: 12:36 boil (staph infection); tw2 12:37 Appendectomy; tw2 - Immunization history:: Adult Immunizations. - Social history:: Smoking status: . Screenin:26 Abuse screen: Denies threats or abuse. Denies injuries from another. Nutritional ld1 screening: No deficits noted. Tuberculosis screening: No symptoms or risk factors identified. Fall Risk IV access (20 points). Assessment: 13:09 Reassessment: Pt to CT now VIA stretcher. ss 13:26 General: Appears in no apparent distress. comfortable, Behavior is calm, cooperative, ld1 appropriate for age. Pain: Denies pain. Neuro: Level of Consciousness is awake, alert, obeys commands, Oriented to person, place, time, situation, Appropriate for age Reports dizziness, since dizziness began this morning at 0830. Cardiovascular: Reports shortness of breath, Denies chest pain, Capillary refill < 3 seconds Patient's skin is warm and dry. Respiratory: Airway is patent Respiratory effort is even, unlabored, Respiratory pattern is regular, symmetrical. GI: Abdomen is round non-distended, Pt is actively vomiting clear fluid, Bowel sounds present X 4 quads. Reports nausea. : No signs and/or symptoms were reported regarding the genitourinary system. EENT: No signs and/or symptoms were reported regarding the EENT system. Derm: No signs and/or symptoms reported regarding the dermatologic system. Musculoskeletal: No signs and/or symptoms reported regarding the musculoskeletal system. 15:45 Reassessment: No changes from previously documented assessment. Patient and/or family jl7 updated on plan of care and expected duration. Pain level reassessed. Patient is alert, oriented x 3, equal unlabored respirations, skin warm/dry/pink. Patient in bed with at bedside. Denies any concerns at this time. Patient denies pain at this time. 17:02 Reassessment: No changes from previously documented assessment. Patient and/or family ld1 updated on plan of care and expected duration. Pain level reassessed. Patient is alert, oriented x 3, equal unlabored respirations, skin warm/dry/pink. Patient denies pain at this time. 18:31 Reassessment: Patient and/or family updated on plan of care and expected duration. Pain ld1 level reassessed. Patient is alert, oriented x 3, equal unlabored respirations, skin warm/dry/pink. Pt denies concerns at this time. at bedside. Patient denies pain at this time. 20:43 Reassessment: Patient appears in no apparent distress at this time. Patient is alert, ca1 oriented x 3, equal unlabored respirations, skin warm/dry/pink. bedside report given to EMILY Back. Vital Signs: 12:28 BP 73 / 60; Pulse 118; Resp 17; Temp 98.6(O); Pulse Ox 100% on R/A; Weight 161.03 kg tw2 (R); Height 6 ft. 5 in. (195.58 cm) (R); Pain 0/10; 13:26 BP 92 / 69; Pulse 112; Resp 20; Temp 98.5(TE); Pulse Ox 100% on R/A; Weight 161.03 kg; ld1 Height 6 ft. 5 in. (195.58 cm); Pain 0/10; 15:45 BP 123 / 72; Pulse 94; Resp 18; Pulse Ox 100% on R/A; Pain 0/10; jl7 17:02 BP 121 / 78; Pulse 82; Resp 18; Pulse Ox 97% on R/A; Pain 0/10; ld1 20:30 BP 128 / 81; Pulse 79; Resp 16 S; Pulse Ox 100% on R/A; ca1 13:26 Body Mass Index 42.10 (161.03 kg, 195.58 cm) ld1 ED Course: 12:04 Patient arrived in ED. mr 12:05 Sergio Rasmussen MD is Private Physician. mr 12:31 Triage completed. tw2 12:36 Arm band placed on. tw2 12:52 Christine Hayward, EMILY is Primary Nurse. ld1 12:55 Jean Bolden PA is PHCP. jmm 12:55 Arnaldo Vail MD is Attending Physician. jmm 13:13 CT Head Brain wo Cont In Process Unspecified. EDMS 13:26 Patient has correct armband on for positive identification. Placed in gown. Bed in low ld1 position. Call light in reach. Side rails up X 1. athletic monitor on. Pulse ox on. NIBP on. Notified ED physician of vital signs. Door closed. Noise minimized. Warm blanket given. 13:26 No provider procedures requiring assistance completed. Inserted saline lock: 22 gauge ld1 in left antecubital area, using aseptic technique. Blood collected. 14:18 XRAY Chest (1 view) In Process Unspecified. EDMS 14:41 MRI - Brain Wo Cont In Process Unspecified. EDMS 16:23 Gamaliel Jones is Hospitalizing Provider. jmm 18:30 CORONAVIRUS Sent. ld1 18:31 COVID-19 : Document "Date of Symptom Onset" if Symptomatic. Sent. ld1 20:44 Patient admitted, IV remains in place. ca1 Administered Medications: 13:00 Drug: NS 0.9% 1000 ml Route: IV; Rate: 1 bolus; Site: left antecubital; ld1 13:35 Follow up: Response: No adverse reaction ld1 13:00 Drug: Zofran (Ondansetron) 4 mg Route: IVP; Site: left antecubital; ld1 13:35 Follow up: Response: No adverse reaction; Nausea is decreased ld1 13:05 Drug: Meclizine 50 mg Route: PO; ld1 13:34 Follow up: Response: No adverse reaction; Nausea is decreased; Vomiting decreased ld1 Outcome: 16:24 Decision to Hospitalize by Provider. jmm 20:27 Patient left the ED. jb4 20:44 Admitted to Tele accompanied by nurse, via wheelchair, room 410, with chart, Report ca1 called to EMILY Back Bedside report given 20:44 Condition: stable 20:44 Instructed on the need for admit. Signatures: Dispatcher [employer] EDMS Jean Bolden PA PA jmmario LucasYady mr FoyStefanie, RN RN ss Maral Wheatley RN RN tw2 Patel Guerra, EMILY RN jb4 Bao Hurst RN RN jl7 Katelyn Jaime RN RN ca1 Dibbern, Christine, RN RN ld1
[2021-02-13] MEDS: INSULIN -REGULAR HUMAN 50 UNIT/0.5 ML ML SQ SCH (21:00)
[2021-02-13] MEDS: NA CHLORIDE 0.9% 1,000 ML IV SCH (23:09)
[2021-02-14] MEDS: HEPARIN 5000 UNIT/ML 1 ML VIAL SQ SCH ×3 (01:03→16:28)
[2021-02-14] MEDS: NA CHLORIDE 0.9% 1,000 ML IV SCH ×2 (04:00→13:03)
[2021-02-14 04:26] LABS: Absolute Lymphocytes (CBC) 2.7 K/uL (0.7-4.9); Basophils % 0.4 % (0-1.3); MPV 8.9 fL (7.6-11.3); RBC Red Blood Cell Count 3.79 M/uL (4.33-5.43)
[2021-02-14 04:30] LABS: Protime INR 1.11
[2021-02-14 04:34] VITALS: BMI 42.0
[2021-02-14 04:42] LABS: BUN Blood Urea Nitrogen 36 mg/dL (7-18); Bicarbonate 27 mmol/L (21-32); Glucose Level 127 mg/dL (74-106); Potassium 4.3 mmol/L (3.5-5.1); Sodium Level 141 mmol/L (136-145); Troponin I < 0.02 ng/mL (0.0-0.045)
[2021-02-14] MEDS: INSULIN -REGULAR HUMAN 50 UNIT/0.5 ML ML SQ SCH ×3 (07:30→16:19)
--- NOTE | 2021-02-14 10:50 | RAD REPORT ---
EXAM DESCRIPTION: USCarotid Artery Bilateral02/14/2021 10:23 am CLINICAL HISTORY: syncope COMPARISON: None FINDINGS: The velocity of the right internal carotid artery equals 51 cm/sec. The right ICA/CCA rati o 0.7 The velocity of the left internal carotid artery equals 43 cm/sec. The left ICA/CCA ratio 0.6. Mild plaque is present within the carotid arteries. The vertebral arteries demonstrate antegrade flow Bilateral thyroid nodules IMPRESSION: Mild plaque within the carotid arteries without evidence of a hemodynamically significan t stenosis Bilateral thyroid nodules. Dedicated thyroid ultrasound recommended NASCET criteria used. Mild 0-49% stenosis Moderate 50-69% stenosis Severe 70-99% stenosis
--- NOTE | 2021-02-14 15:39 | P.DS ---
Admission Date: 02/13/21 Discharge Date: 02/14/21 Reason for Admission: Near Syncope Consultations: Cardiology - Problems (1) Dehydration Onset Date: 02/13/18 Status: Acute (2) Near syncope Status: Acute (3) LESLEY (acute kidney injury) Status: Acute Brief History of Present Illness: Patient is 65-year-old male with a past medical history significant for hypertension, GERD, DM 2, BPH, HLD who presents with complaint of dizziness. Patient reported that he was at work when he started feeling dizzy and lightheadedness. He also had a near syncopal episode and decided to go see the facility nurse. Patient reported associated signs and symptoms of nausea, vomiting and weakness. Patient denies any other signs or symptoms. Symptoms are aggravated or relieved by nothing. Patient decided to present to the hospital for medical evaluation. Of note, patient reported that his blood p ressure was low at work when assessed by the facility nurse. Patient cannot remember the exact figures Hospital Course: Patient is 65-year-old male with a past medical history significant for hypertension, GERD, DM 2, BPH, HLD who presented with complaint of dizziness and near syncope with associated s\s of lightheadedness, nausea, vomiting and weakness. Patient's blood pressure was noted to be low on presentation to the hospital. Patient also had acute kidney injury. Patient was started on IV hydration. Blood pressure normalized and his kidney functions improved. Orthostatic vital signs was unremarkable. Face Hardener was consulted. Echocardiogram and carotid Doppler were ordered. Carotid Doppler was unremarkable for any carotid artery stenosis but indicated bilateral thyroid nodules. Patient was seen by sap architect. Patient denied dizziness or any other signs or symptoms. Patient was cleared for discharge by sap architect. Patient was instructed to follow with his PCP to have a thyriod ultrasound done o/p and for his routine care. Patient was also instructed to f\u a sap architect and prop cutter in 1 week for continuation of care. Patient verbalized understanding of discharge instructions and patient was discharged in stable condition. <Linn Gomez - Last Filed: 02/14/21 15:33> Admission Date: 02/13/21 Discharge Date: 02/14/21 <derek kevin - Last Filed: 02/14/21 18:15> Disposition: ROUTINE DISCHARGE Discharge Condition: GOOD Vital Signs/Physical Exam: Temp Pulse Resp BP Pulse Ox 97 F 91 H 18 113/64 98 02/14/21 12:00 02/14/21 12:00 02/14/21 12:00 02/14/21 12:00 02/14/21 12:00 General: Oriented x3 HEENT: Atraumatic, PERRLA Neck: Supple, JVD not distended Respiratory: Clear to auscultation bilaterally, Normal air movement Cardiovascular: Regular rate/rhythm, Normal S1 S2 Capillary refill: <2 Seconds Gastrointestinal: Normal bowel sounds, No tenderness, Other Musculoskeletal: No tenderness Integumentary: No rashes Neurological: Normal speech, Normal tone, Normal affect Lymphatics: No axilla or inguinal lymphadenopathy External genitalia: Deferred Rectal: Deferred Laboratory Data at Discharge: WBC 9.00 K/uL (4.3-10.9) 02/14/21 03:48 Hgb 10.3 g/dL (13.6-17.9) L 02/14/21 03:48 Hct 31.0 % (39.6-49.0) L D 02/14/21 03:48 Plt Count 299 K/uL (152-406) D 02/14/21 03:48 PT 12.8 SECONDS (9.5-12.5) H 02/14/21 03:48 INR 1.11 02/14/21 03:48 Sodium 141 mmol/L (136-145) 02/14/21 10:57 Potassium 4.0 mmol/L (3.5-5.1) 02/14/21 10:57 BUN 32 mg/dL (7-18) H 02/14/21 10:57 Creatinine 1.96 mg/dL (0.55-1.3) H 02/14/21 10:57 Glucose 157 mg/dL (74-106) H 02/14/21 10:57 Magnesium 1.5 mg/dL (1.8-2.4) L 02/13/21 13:12 Total Bilirubin 0.5 mg/dL (0.2-1.0) 02/13/21 13:12 AST 17 U/L (15-37) 02/13/21 13:12 ALT 21 U/L (12-78) 02/13/21 13:12 Alkaline Phosphatase 53 U/L (45-117) 02/13/21 13:12 Troponin I < 0.02 ng/mL (0.0-0.045) 02/14/21 03:48 Triglycerides 95 mg/dL (<150) 02/13/21 19:15 Cholesterol 74 mg/dL (<200) 02/13/21 19:15 HDL Cholesterol 26 mg/dL (40-60) L 02/13/21 19:15 Cholesterol/HDL Ratio 2.85 02/13/21 19:15 <Linn Gomez E - Last Filed: 02/14/21 15:33> Vital Signs/Physical Exam: Temp Pulse Resp BP Pulse Ox 97.6 F 86 16 109/61 95 02/14/21 16:00 02/14/21 16:00 02/14/21 16:00 02/14/21 16:00 02/14/21 16:00 Laboratory Data at Discharge: WBC 9.00 K/uL (4.3-10.9) 02/14/21 03:48 Hgb 10.3 g/dL (13.6-17.9) L 02/14/21 03:48 Hct 31.0 % (39.6-49.0) L D 02/14/21 03:48 Plt Count 299 K/uL (152-406) D 02/14/21 03:48 PT 12.8 SECONDS (9.5-12.5) H 02/14/21 03:48 INR 1.11 02/14/21 03:48 Sodium 141 mmol/L (136-145) 02/14/21 10:57 Potassium 4.0 mmol/L (3.5-5.1) 02/14/21 10:57 BUN 32 mg/dL (7-18) H 02/14/21 10:57 Creatinine 1.96 mg/dL (0.55-1.3) H 02/14/21 10:57 Glucose 157 mg/dL (74-106) H 02/14/21 10:57 Magnesium 1.5 mg/dL (1.8-2.4) L 02/13/21 13:12 Total Bilirubin 0.5 mg/dL (0.2-1.0) 02/13/21 13:12 AST 17 U/L (15-37) 02/13/21 13:12 ALT 21 U/L (12-78) 02/13/21 13:12 Alkaline Phosphatase 53 U/L (45-117) 02/13/21 13:12 Troponin I < 0.02 ng/mL (0.0-0.045) 02/14/21 03:48 Triglycerides 95 mg/dL (<150) 02/13/21 19:15 Cholesterol 74 mg/dL (<200) 02/13/21 19:15 HDL Cholesterol 26 mg/dL (40-60) L 02/13/21 19:15 Cholesterol/HDL Ratio 2.85 02/13/21 19:15 <derek kevin - Last Filed: 02/14/21 18:15> Diet: ADA Activity: Ad daria <Linn Gomez - Last Filed: 02/14/21 15:33> Physician Review: Patient Assessed, Agree with Above Assessment and Plan (Dicussed orthostatic precautions. Patient informed not to take his antihypertensives until he follows with Nephrology within 1 week.) <derek kevin - Last Filed: 02/14/21 18:15> Home Medications: Omeprazole 20 mg PO DAILY 02/12/18 Insulin Glargine,Hum.rec.anlog [Basaglar Kwikpen U-100] 50 units SQ DAILY 02/14/21 Metformin HCl [Glucophage*] 1,000 mg PO DAILY 02/14/21 Olmesartan/Hydrochlorothiazide [Olmesartan-Hctz 40-12.5 mg Tab] 1 tab PO DAILY 02/14/21 Pravastatin Sodium 40 mg PO BEDTIME 02/14/21 Semaglutide [Ozempic] 0.5 mg SQ EVERY 7TH DAY 02/14/21 Tamsulosin HCl [Flomax] 0.4 mg PO SEECOM 02/14/21 Physician Discharge Instructions: F\U with Face Hardener and Elastic Attacher Coverstitch in 1 week Have your PCP schedule you for a thyroid Ultrasound to follow up on thyroid nodules Drink plenty of fluids. Followup: Rosanna Preston MD [ACTIVE - CAN ADMIT] - 1 Week (CAll to schedule an appointment) Mann Cardoso MD [ACTIVE - CAN ADMIT] - 1 Week (Call to schedule an appointment) Sergio Rasmussen MD [Primary Care Provider] - 1 Week (CAll to schedule an appointment.)
[2021-02-14 17:36] VITALS: O2SAT 95
[2021-02-14 17:57] VITALS: BP 109/61; TEMP 97.6
--- NOTE | 2021-02-15 07:24 | EKG ---
Test Date: 2021-02-13 Test Time: 13:46:57 Hat Sizer: Jessica ALVARADO MEASUREMENT RESULTS: Intervals: Rate: 105 PA: 130 QRSD: 76 QT: 318 QTc: 420 [place]: P: 43 PA: 130 QRS: -28 T: -4 INTERPRETIVE STATEMENTS: Sinus tachycardia with occasional premature ventricular complexes Low voltage QRS Inferior infarct, age undetermined Possible Anterolateral infarct, age undetermined Abnormal ECG Compared to ECG 01/30/2021 21:54:04 Ventricular premature complex(es) now present Myocardial infarct finding now present Sinus rhythm no longer present Electronically Signed On 02-15-21 07:18:44 CDT by Mann Cardoso
--- NOTE | 2021-02-15 07:52 | ECHO ---
HEIGHT: 6 ft 5 in WEIGHT: 355 lb 0 oz DATE OF STUDY: 02/14/[address]: Linn Gomez 2-DIMENSIONAL: YES M.MODE: YES DOPPLER: YES COLOR FLOW: YES TDS: YES PORTABLE: DEFINITY: BUBBLE STUDY: DIAGNOSIS: NEAR SYNCOPE CARDIAC HISTORY: CATHERIZATION: NO SURGERY: NO PROSTHETIC VALVE: NO PACEMAKER: NO MEASUREMENTS (cm) DIASTOLIC (NORMALS) SYSTOLIC (NORMALS) IVSd 1.3 (0.6-1.2) LA Diam 2.9 (1.9-4.0) LVEF 56% LVIDd 5.0 (3.5-5.7) LVIDs 3.5 (2.0-3.5) %FS 29% LVPWd 1.3 (0.6-1.2) Ao Diam 3.1 (2.0-3.7) 2 DIMENSIONAL ASSESSMENT: RIGHT ATRIUM: LEFT ATRIUM: RIGHT VENTRICLE: LEFT VENTRICLE: TRICUSPID VALVE: MITRAL VALVE: PULMONIC VALVE: AORTIC VALVE: PERICARDIAL EFFUSION: AORTIC ROOT: LEFT VENTRICULAR WALL MOTION: DOPPLER/COLOR FLOW: NOT REQUESTED COMMENTS: TECHNICALLY DIFFICULT STUDY. GROSSLY NORMAL LEFT VENTRICULAR EJECTION FRACTION AND SIZE. NO EFFUSION. TECHNOLOGIST: DOUG ALEXANDRE
--- NOTE | 2021-02-17 20:13 | PN ---
Date of Progress Note: 02/15/2021 Mr. Ray came in with near syncope on 02/14/2021. I thought that this may have been secondary to orthostatic hypotension. He was dehydrated. His creatinine was 3.48. Today with hydration, his cre atinine is back to 1.96. Echocardiogram is normal. Carotid Doppler is normal. Again, I think the p atient had orthostatic hypotension. I recommended he goes home on his home medication except I would hold the olmesartan with hydrochlorothiazide and hold the Flomax. Continue the rest of the medicati on. We will keep an eye on his kidney function down the road. I will be happy to see him in the off ice as an outpatient in the next 2 weeks. will resume his JIHAN inhibitor down the road if his kidney function is back to normal. MARIALUISA/SEEMA Voice ID: [id number] Report ID: [id number]
--- NOTE | 2021-02-17 20:28 | CON ---
Date of Consultation: 02/14/2021 Reason For Consultation: Near syncope. History Of Present Illness: Mr. Ray is a 65-year-old male, who came into the hospital complainin g of nausea, vomiting, dizziness, feeling faint. Denied any chest pain. Denied any PND, orthopnea, pedal edema, palpitation, or syncope. His symptoms began at work. He denied any fever, chills, or c ough. Past Medical History: Hypertension, gastroesophageal reflux disease, diabetes, and enlarged prostate . Allergies: HE IS ALLERGIC TO SULFA, FLAGYL, NEOSPORIN, AND AMARYL. Review of Systems: Negative. Social History: Negative. Family History: Positive for diabetes. Medications: At home include metformin, Ozempic, tamsulosin, pravastatin, omeprazole. He also takes olmesartan with hydrochlorothiazide. Physical Examination: General: When I saw him, he weighed 355 pounds. His vital signs were stable, afebrile. HEENT: Negative. Neck: Supple with no bruit. Chest: Clear to auscultation and percussion. Cardiac: Regular rhythm and rate. No murmurs, gallops, or rubs. Abdomen: Benign. Extremities: No clubbing, cyanosis, or edema. Diagnostic Data: Creatinine of 3.48. He had a glucose of 147. Magnesium was 1.5. His BNP was 468 with a negative troponin. His BNP was 305. Impression And Plan: Syncope, I think secondary to orthostatic hypotension from the combination of d ehydration, hydrochlorothiazide, and Flomax. His creatinine is very elevated and very consistent wit h that. I think he needs to be aggressively hydrated. I think we need to hold his Flomax, hold his olmesartan and hydrochlorothiazide, and see what his creatinine does. I think an echocardiogram and a carotid Doppler are indicated. His other problems including diabetes, dyslipidemia, and gastroesop hageal reflux disease are well controlled. We will continue to follow him. MARIALUISA/BHASKARL Voice ID: [id number] Report ID: [id number]
== END 2021-02-14 17:45 | disposition home or self-care (01) ==
LOC: ER 12:01 → ERHOLD 17:02 → INTOOBSV 17:02 → 4TH 20:19
PROVIDERS: ADMIT Internal Medicine; ATTEND Internal Medicine
DX: R55 Syncope and collapse (principal); E86.0 Dehydration; N17.9 Acute kidney failure, unspecified; I10 Essential (primary) hypertension; K21.9 Gastro-esophageal reflux disease without esophagitis; E11.9 Type 2 diabetes mellitus without complications; Z20.822 Contact with and (suspected) exposure to COVID-19; N40.0 Benign prostatic hyperplasia without lower urinary tract symptoms; E78.5 Hyperlipidemia, unspecified; Z79.4 Long term (current) use of insulin; E66.01 Morbid (severe) obesity due to excess calories; Z68.41 Body mass index [BMI] 40.0-44.9, adult; R94.31 Abnormal electrocardiogram [ECG] [EKG]
CPT/HCPCS: 36415; 70450; 70551; 71045; 80048; 80061; 80076; 82550; 82947; 83036; 83605; 83735; 83880; 84145; 84439; 84443; 84484; 85025; 85610; 87040; 93005; 93307; 93880; 96374; 99285; G0378; J1644; J2405; J7030; U0003

== ENCOUNTER → 2021-03-06 | Day surgery (SDC) | payer BC ==
--- NOTE | 2021-03-06 13:00 | RAD REPORT ---
EXAM DESCRIPTION: US - Guided FNA Non Breast - 03/06/2021 10:34 am CLINICAL HISTORY: Thyroid nodule ICD E04.1 COMPARISON: March 03, 2021 ultrasound TECHNIQUE: Risks, benefits and alternatives of procedure explained to the patient and informed conse nt obtained. Skin and subcutaneous tissues anesthetized with lidocaine. Under sonographic guidance, five 25 gauge needle passes were obtained into the 1.8 centimeter nodule within the superior aspect of the left lobe of the thyroid gland. Specimens given to pathology. Patient experienced no immediate complication IMPRESSION: Fine-needle aspiration of a dominant nodule within left lobe of thyroid gland
== END ==
LOC: FNA 09:34
PROVIDERS: ATTEND Internal Medicine
PROC: 0GJK3ZZ Inspection of Thyroid Gland, Percutaneous Approach (ICD-10-PCS; principal; 2021-03-06)
DX: E04.1 Nontoxic single thyroid nodule (principal)
CPT/HCPCS: 88162